=== PATIENT | male | born 1990 | race African-American/Black ===

== ENCOUNTER 2019-01-20 07:58 | Emergency (ER) | payer SELFPAY ==
--- NOTE | 2019-01-20 08:12 | EDPHYS ---
Physician Documentation [facility] Name: Rome Obrien Age: 28 yrs Sex: Male : 1990 Arrival Date: 01/20/2019 Time: 08:02 Bed 20 Private MD: ED Physician Piyush Gomez HPI: 01/20 08:12 This 28 yrs old Black Male presents to ER via Ambulatory with complaints of Headache. jr8 08:12 The patient complains of pain to the forehead. Onset: The symptoms/episode jr8 began/occurred acutely, last night. Associated signs and symptoms: The patient has no apparent associated signs or symptoms. Severity of symptoms: At its worst the pain was mild, in the emergency department the pain has improved, markedly. The patient has not experienced similar symptoms in the past. The patient has not recently seen a physician. Stated that he had continued headache throughout last night and took some medicine this AM. Now feeling better but needs a work note because he missed work . Historical: - Allergies: 08:08 NKA; ss - Home Meds: 08:08 None [Active]; ss - PMHx: 08:08 None; ss - PSHx: 08:08 Hernia repair; ss - Immunization history:: Adult Immunizations up to date. - Social history:: Smoking status: Patient/guardian denies using tobacco. - Ebola Screening: : Patient denies exposure to infectious person Patient denies travel to an Ebola-affected area in the 21 days before illness onset. ROS: 08:12 Eyes: Negative for injury, pain, redness, and discharge, ENT: Negative for injury, jr8 pain, and discharge, Neck: Negative for injury, pain, and swelling, Cardiovascular: Negative for chest pain, palpitations, and edema, Respiratory: Negative for shortness of breath, cough, wheezing, and pleuritic chest pain, Abdomen/GI: Negative for abdominal pain, nausea, vomiting, diarrhea, and constipation, Back: Negative for injury and pain, MS/Extremity: Negative for injury and deformity, Skin: Negative for injury, rash, and discoloration. 08:12 Neuro: Positive for headache. Exam: 08:12 Constitutional: This is a well developed, well nourished patient who is awake, alert, jr8 and in no acute distress. Eyes: Pupils equal round and reactive to light, extra-ocular motions intact. Lids and lashes normal. Conjunctiva and sclera are non-icteric and not injected. Cornea within normal limits. Periorbital areas with no swelling, redness, or edema. ENT: Nares patent. No nasal discharge, no septal abnormalities noted. Tympanic membranes are normal and external auditory canals are clear. Oropharynx with no redness, swelling, or masses, exudates, or evidence of obstruction, uvula midline. Mucous membranes moist. Neck: Trachea midline, no thyromegaly or masses palpated, and no cervical lymphadenopathy. Supple, full range of motion without nuchal rigidity, or vertebral point tenderness. No Meningismus. Cardiovascular: Regular rate and rhythm with a normal S1 and S2. No gallops, murmurs, or rubs. Normal PMI, no JVD. No pulse deficits. Respiratory: Lungs have equal breath sounds bilaterally, clear to auscultation and percussion. No rales, rhonchi or wheezes noted. No increased work of breathing, no retractions or nasal flaring. Abdomen/GI: Soft, non-tender, with normal bowel sounds. No distension or tympany. No guarding or rebound. No evidence of tenderness throughout. Back: No spinal tenderness. No costovertebral tenderness. Full range of motion. Skin: Warm, dry with normal turgor. Normal color with no rashes, no lesions, and no evidence of cellulitis. MS/ Extremity: Pulses equal, no cyanosis. Neurovascular intact. Full, normal range of motion. Neuro: Awake and alert, GCS 15, oriented to person, place, time, and situation. Cranial nerves II-XII grossly intact. Motor strength 5/5 in all extremities. Sensory grossly intact. Cerebellar exam normal. Normal gait. Vital Signs: 08:08 BP 145 / 98; Pulse 61; Resp 17; Temp 97.8(TE); Pulse Ox 100% on R/A; Weight 90.72 kg; ss Height 6 ft. 3 in. (190.50 cm); Pain 5/10; 08:08 Body Mass Index 25.00 (90.72 kg, 190.50 cm) ss MDM: 08:04 Patient medically screened. [facility] 08:11 Data reviewed: vital signs, nurses notes, and as a result, I will discharge patient. jr8 Data interpreted: Pulse oximetry: on room air is 100 %. Interpretation: normal. Counseling: I had a detailed discussion with the patient and/or guardian regarding: the historical points, exam findings, and any diagnostic results supporting the discharge/admit diagnosis, the need for outpatient follow up, a family practitioner, to return to the emergency department if symptoms worsen or persist or if there are any questions or concerns that arise at home. Response to treatment: the patient's symptoms have resolved after treatment. Administered Medications: No medications were administered Disposition: 01/20/19 08:11 Discharged to Home. Impression: Headache. - Condition is Stable. - Discharge Instructions: General Headache Without Cause, Migraine Headache. - Work release form, Medication Reconciliation Form, Thank You Letter, Antibiotic Education, Prescription Opioid Use form. - Follow up: Private Physician; When: As needed; Reason: Recheck today's complaints, Continuance of care, Re-evaluation by your physician. - Problem is new. - Symptoms have improved. Addendum: 01/24/2019 07:12 Co-signature as Attending Physician, Piyush Gomez MD I agree with the assessment and c acuña plan of care. Signatures: Piyush Gomez MD MD cha Smirch, Shelby, RN RN ss Catrachito Lizarraga PA PA jr8 Corrections: (The following items were deleted from the chart) 01/20 08:15 08:11 01/20/2019 08:11 Discharged to Home. Impression: Headache. Condition is Stable. ss Forms are Medication Reconciliation Form, Thank You Letter, Antibiotic Education, Prescription Opioid Use. Follow up: Private Physician; When: As needed; Reason: Recheck today's complaints, Continuance of care, Re-evaluation by your physician. Problem is new. Symptoms have improved. jr8
--- NOTE | 2019-01-20 08:12 | ER ---
Nurse's Notes [facility] Name: Rome Obrien Age: 28 yrs Sex: Male : 1990 Arrival Date: 01/20/2019 Time: 08:02 Bed 20 Private MD: Diagnosis: Headache Presentation: 01/20 08:06 Presenting complaint: Patient states: headache that began yesterday. 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 Pt reportedly took Tylenol yesterday which helped his headache. Pt states, "I pretty much just came here because my work wanted me to get checked out even though I feel better.". Transition of care: patient was not received from another setting of care. Onset of symptoms was January 19, 2019. Risk Assessment: Do you want to hurt yourself or someone else? Patient reports no desire to harm self or others. Initial Sepsis Screen: Does the patient meet any 2 criteria? No. Patient's initial sepsis screen is negative. Does the patient have a suspected source of infection? No. Patient's initial sepsis screen is negative. Care prior to arrival: None. 08:06 Acuity: JENNA 5 ss 08:06 Method Of Arrival: Ambulatory ss Historical: - Allergies: 08:08 NKA; ss - Home Meds: 08:08 None [Active]; ss - PMHx: 08:08 None; ss - PSHx: 08:08 Hernia repair; ss - Immunization history:: Adult Immunizations up to date. - Social history:: Smoking status: Patient/guardian denies using tobacco. - Ebola Screening: : Patient denies exposure to infectious person Patient denies travel to an Ebola-affected area in the 21 days before illness onset. Screenin:13 Abuse screen: Denies threats or abuse. Denies injuries from another. Nutritional ss screening: No deficits noted. Tuberculosis screening: Never had TB. Fall Risk None identified. Assessment: 08:13 General: Appears in no apparent distress. comfortable, Denies fever, feeling ill, ss fatigue, chills. Pain: Complains of pain in forehead Pain currently is 5 out of 10 on a pain scale. at worst was 8 out of 10 on a pain scale. Quality of pain is described as aching, Pain began yesterday Is intermittent. Neuro: Level of Consciousness is awake, alert, obeys commands, Oriented to person, place, time, situation, Speech is normal, Facial symmetry appears normal, Pupils are PERRLA. Cardiovascular: Pulses are palpable in right radial artery and left radial artery. Respiratory: Airway is patent Respiratory effort is even, unlabored, Respiratory pattern is regular, symmetrical. GI: Patient currently denies abdominal pain, diarrhea, nausea, vomiting. EENT: Oral mucosa is moist. Throat is clear. Derm: Skin is intact, is healthy with good turgor, Skin is dry, Skin is pink, warm \\T\\ dry. normal. Musculoskeletal: Circulation, motion, and sensation intact. Range of motion: intact in all extremities, Swelling absent. Vital Signs: 08:08 BP 145 / 98; Pulse 61; Resp 17; Temp 97.8(TE); Pulse Ox 100% on R/A; Weight 90.72 kg; ss Height 6 ft. 3 in. (190.50 cm); Pain 5/10; 08:08 Body Mass Index 25.00 (90.72 kg, 190.50 cm) ED Course: 08:02 Patient arrived in ED. mr 08:04 Catrachito Lizarraga PA is PHCP. jr8 08:04 Piyush Gomez MD is Attending Physician. jr8 08:04 Leland Hodge, APRIL is Primary Nurse. bp 08:08 Triage completed. ss 08:08 Arm band placed on right wrist. ss 08:13 Patient has correct armband on for positive identification. Bed in low position. Call ss light in reach. 08:13 No provider procedures requiring assistance completed. Patient did not have IV access ss during this emergency room visit. Administered Medications: No medications were administered Outcome: 08:11 Discharge ordered by . jr8 08:15 Discharged to home ambulatory. ss 08:15 Condition: good 08:15 Discharge instructions given to patient, Instructed on discharge instructions, follow up and referral plans. medication usage, Demonstrated understanding of instructions, follow-up care, medications. 08:15 Patient left the ED. Signatures: Cynthia HoffXiomara, RN RN Catrachito Lizarraga PA PA jr8 Leland Hodge, APRIL RN bp
== END 2019-01-20 08:15 | disposition home or self-care (01) ==
LOC: ER 07:58
DX: R51 Headache (principal)
CPT/HCPCS: 99281